=== PATIENT | male | born 2005 | race Two or more races ===

== ENCOUNTER 2024-09-26 | Emergency (ER) | payer MEDICAID, SELFPAY ==
[2024-09-26 00:01] VITALS: PULSE 82; RESP 19; O2SAT 98; BMI 46.0
[2024-09-26 00:41] VITALS: BP 158/93; PULSE 89; RESP 17; TEMP 37.1; O2SAT 100
--- NOTE | 2024-09-26 01:04 | EDRME_ITS ---
Rapid Medical Screening Exam [facility] Arrival date/time: 09/26/24 00:00 19M with history of allergic rhinitis presents to ED with L nosebleed for 1 day that stopped on its own. Patient states something fell on the L side of his face several days ago, but didn't hit the nose. There was no initial bleeding. Patient denies LOC, AMS, seizures, weakness, and vision changes. Chief Complaint: Epistaxis/Nasal Foreign Body Time Seen by Provider: 09/26/24 00:59 Vital signs: Vital Signs Temperature 98.8 F 09/26/24 00:41 Pulse Rate 89 09/26/24 00:41 Respiratory Rate 17 09/26/24 00:41 Blood Pressure 158/93 H 09/26/24 00:41 Pulse Oximetry (%) 100 09/26/24 00:41 Oxygen Delivery Method Room Air 09/26/24 00:41
--- NOTE | 2024-09-26 01:07 | PC.NURSE ---
pt walked out of e at this time.
== END 2024-09-26 01:06 | disposition left against medical advice (07) ==
LOC: SERX 04:39
PROVIDERS: Emergency Provider Emergency Medicine
DX: R04.0 Epistaxis (principal); Z53.29 Procedure and treatment not carried out because of patient's decision for other reasons
CPT/HCPCS: 99281

== ENCOUNTER 2024-12-05 10:55 | Day surgery (SDC) | payer MEDICAID, OTHER, SELFPAY ==
[2024-12-04 12:27] VITALS: BMI 47.2
[2024-12-05 11:30] VITALS: BP 141/83; PULSE 74; RESP 15; TEMP 37.1; O2SAT 99; BMI 45.4
[2024-12-05 12:18] LABS: Anion Gap 7 (7-16); BUN/Creatinine Ratio 20 Ratio (12-20); Blood Urea Nitrogen 14 mg/dL (9-23); Carbon Dioxide 26.8 mMol/L (20.0-31.0); Chloride 104 mMol/L (98-107); Creatinine (Component) 0.7 mg/dL (0.6-1.3); Estimated Creatinine Clearance 234.1 mL/min (>60); Glucose 99 mg/dL (74-106); Osmolality,Calculated 276 (275-295); Potassium 4.3 mMol/L (3.4-5.1); Sodium 138 mMol/L (136-145); eGFR > 60 See Note
[2024-12-05] MEDS: SODIUM CHLORIDE 0.9% 500 ML 500 ML 20 ML IV (13:38)
[2024-12-05 14:09] VITALS: BP 127/85; PULSE 78; PULSE 80; RESP 18; TEMP 36.7; O2SAT 97
--- NOTE | 2024-12-05 14:09 | SUR.PHASEII ---
pt received from OR in recovery bay 2. pt asleep but responds to voice, breathing unlabored on 4l oxymask. v/s stable. report received from Gina WOOD and Dr. Mcneal.
[2024-12-05 14:15] VITALS: BP 119/80; PULSE 74; RESP 17; TEMP 36.6; O2SAT 97
[2024-12-05 14:20] VITALS: BP 130/78; PULSE 70; RESP 17; TEMP 36.6; O2SAT 98
[2024-12-05 14:25] VITALS: BP 137/83; PULSE 68; RESP 16; TEMP 36.8; O2SAT 99
[2024-12-05 14:40] VITALS: BP 129/78; PULSE 67; RESP 16; TEMP 36.6; O2SAT 96
--- NOTE | 2024-12-05 14:40 | SUR.PHASEII ---
pt able to tolerate ice chips without difficulty swallowing or nausea/vomiting.
--- NOTE | 2024-12-05 14:46 | SUR.PHASEII ---
pt awake and alert, breathing unlabored on room air. v/s stable. pt able to ambulate to wheelchair with steady gait. d/c instructions given with mother in room, all questions answered. pt d/c via wheelchair with all belongings.
== END 2024-12-05 14:46 | disposition home or self-care (01) ==
PROVIDERS: Anesthesiology; PCP Internal Medicine; Referring Provider Internal Medicine Gastroenterology; Visit Provider Internal Medicine Gastroenterology
PROC: (CPT 43239; principal; 2024-12-05 12:15)
DX: K29.70 Gastritis, unspecified, without bleeding (principal); K44.9 Diaphragmatic hernia without obstruction or gangrene; K25.9 Gastric ulcer, unspecified as acute or chronic, without hemorrhage or perforation; K29.80 Duodenitis without bleeding; E78.5 Hyperlipidemia, unspecified
CPT/HCPCS: 43239; 36415; 80048; A4649; J3010; J3490; J7040